=== PATIENT | female | born 1955 | race Caucasian/White ===

== ENCOUNTER 2024-11-29 10:58 | Day surgery (SDC) | payer BC, MEDICARE, OTHER ==
[~2024-11-29] VITALS: Ht 167.6 cm; Wt 90.7 kg
[~2024-11-29 10:58] MED LIST: GABA-284 PO; LEVO200T4 PO; PANT20TA6 PO; POLY510P14; SODIUM CHLORIDE 0.9% INJ 10 ML SYR IV SCH; TRAZ1TAB14 PO
[2024-11-29] MEDS ORDERED: LIDOCAINE 2% 100MG/5ML SDV (FOR ANES.) As Ordered ONE (14:23)
[2024-11-29] MEDS ORDERED: propofoL 200 MG/20 ML VIAL As Ordered ONE (14:23)
[2024-11-29 14:30] VITALS: TEMP 98
[2024-11-29] MEDS ORDERED: SODIUM CHLORIDE 0.9% INJ 10 ML SYR IV PRN (14:58)
[2024-11-29 15:15] VITALS: BP 150/65; O2SAT 96
== END 2024-11-29 15:14 | disposition home or self-care (01) ==
LOC: M OPP 10:58
PROVIDERS: ATTEND Internal Medicine Gastroenterology
DX: Z12.11 Encounter for screening for malignant neoplasm of colon (principal); D12.5 Benign neoplasm of sigmoid colon; R10.84 Generalized abdominal pain; R19.4 Change in bowel habit; K57.30 Diverticulosis of large intestine without perforation or abscess without bleeding; R10.13 Epigastric pain; R11.0 Nausea; Z79.899 Other long term (current) drug therapy

== ENCOUNTER → 2024-12-28 | Outpatient (CLI) | payer MEDICARE, BC, OTHER ==
[~2024-12-28] MED LIST changes: +ISOVUE-370 76% 100ML VIAL ONE; -SODIUM CHLORIDE 0.9% INJ 10 ML SYR IV SCH
== END ==
LOC: M PLAIMG 08:29
PROVIDERS: ATTEND Physician Assistant Medical
DX: R10.84 Generalized abdominal pain (principal)
CPT/HCPCS: 74177; Q9967

== ENCOUNTER → 2025-02-09 | Outpatient (CLI) | payer MEDICARE, BC, OTHER ==
[~2025-02-09] MED LIST changes: -ISOVUE-370 76% 100ML VIAL ONE
== END ==
LOC: M RAD 12:24
PROVIDERS: ATTEND Physician Assistant Medical
DX: R93.3 Abnormal findings on diagnostic imaging of other parts of digestive tract (principal); R11.0 Nausea; R68.81 Early satiety

== ENCOUNTER → 2025-11-22 | Outpatient (REF) | payer MEDICARE, BC, OTHER | LOC: M LAB REF 06:45 | PROVIDERS: ATTEND Nurse Practitioner Family | DX: R19.4 Change in bowel habit (principal); R19.7 Diarrhea, unspecified; R10.811 Right upper quadrant abdominal tenderness ==